=== PATIENT | male | born 1995 | race Caucasian/White ===

== ENCOUNTER → 2016-05-06 | Outpatient (CLI) | payer BC ==
[~2016-05-06] MED LIST: HYDR-4246 PO; MELO15TA12 PO; ONDA4TAB7 PO
[2016-05-06 14:48] LABS: BLOOD, URINE TRACE-LYSED (NEGATIVE); COLOR,URINE YELLOW (YELLOW); LEUKOCYTE ESTERASE ,URINE NEGATIVE (NEGATIVE); NITRITE,URINE NEGATIVE (NEGATIVE); UROBILINOGEN,URINE 0.2 EU/DL (NORMAL)
[2016-05-06 14:50] LABS: BASOPHILS % (AUTO) 0.1 % (0-2); HCT - HEMATOCRIT 44.9 % (41-53); HGB - HEMOGLOBIN 15.4 GM/DL (13.5-17.5); IMMATURE GRANULOCYTE # (AUTO) 0.02 T/MM3 (0.00-0.03); IMMATURE GRANULOCYTE % (AUTO) 0.2 % (0.0-0.5); LYMPHOCYTES # (AUTO) 1.7 T/MM3 (1-4.8); LYMPHOCYTES % (AUTO) 14.5 % (23-45); MEAN CORPUSCULAR HGB 29.8 UUG (26-34); MEAN CORPUSCULAR HGB CONC(MCHC 34.3 GM/DL (31-37); MEAN PLATELET VOLUME 9.3 UM3 (9.4-12.4); MONOCYTES # (AUTO) 1.1 T/MM3 (0-0.8); MONOCYTES % (AUTO) 9.4 % (0-9.0); NEUTROPHILS % (AUTO) 75.8 % (33-66); RED BLOOD COUNT 5.16 M/MM3 (4.50-5.90); WBC - WHITE BLOOD COUNT 11.9 T/MM3 (4.5-11.0)
[2016-05-06 14:54] LABS: ALBUMIN 4.4 G/DL (3.5-5.0); ALBUMIN/GLOBULIN RATIO 1.3 RATIO (1.1-2.2); ALKALINE PHOSPHATASE 83 U/L (38-126); ALT (SGPT) 35 U/L (21-72); ANION GAP 12 MEQ/L (5-15); AST (SGOT) 15 U/L (17-59); BUN/CREATININE RATIO 11 RATIO (6-26); CALCIUM 9.8 MG/DL (8.4-10.2); CHLORIDE 103 MEQ/L (98-107); CO2 - CARBON DIOXIDE 28 MEQ/L (22-30); GLOMERULAR FILTRATION RATE 95; GLUCOSE 106 MG/DL (75-110); POTASSIUM 4.3 MEQ/L (3.6-5); SODIUM 143 MEQ/L (134-144); TOTAL PROTEIN 7.9 G/DL (6.3-8.2)
== END ==
LOC: LAB 14:19
PROVIDERS: ATTEND Family Medicine
DX: R50.9 Fever, unspecified (principal)
CPT/HCPCS: 36415; 80053; 81003; 85025; 86663; 86664; 86665; 86666; 87081; 87430; 87486; 87581; 87633; 87798

== ENCOUNTER 2017-01-11 19:58 | Observation (INO) ==
[2017-01-11] MEDS ORDERED: SALINE FLUSH 10ml SYRINGE IVF PRN (20:46)
[2017-01-11] MEDS ORDERED: ONDANSETRON 4 MG/2 ML INJECTION IVP ONE (20:47)
[2017-01-11] MEDS ORDERED: NS 1,000 ML IV ONE (20:47)
--- NOTE | 2017-01-11 20:49 | Emergency Department Report ---
General Adult HPI - General Chief complaint: Nausea/Vomiting/Diarrhea Stated complaint: Vomitting Time Seen by Provider: 01/11/17 20:08 Source: patient, family Mode of arrival: ambulatory Limitations: no limitations - History of Present Illness HPI narrative: 21-year-old male presents to the emergency department with a chief complaint of intractable nausea, vomiting, and diarrhea. Patient was seen and evaluated in the emergency department earlier today at approximately 1300 p.m. with unremarkable laboratory studies. Patient was given Zofran and 1 L normal saline intravenously in the emergency department and did not have any further emesis while being observed. He was discharged home. Patient states that his emesis returned at home after eating several crackers and that he called his primary care physician who instructed him to go to the emergency department for admission to the hospital. PCP was Dr. Wise. Patient denies any current pain or discomfort. He states that he is having loose stool and continued emesis without blood in either. He denies any trauma, travel, poorly prepared food, or recent antibiotic use. He was at home when his symptoms began. Symptoms have been persistent in nature since Monday of this week. Patient states that he has not been able to hold down any po intake for the past 3 days at home. - Related Data Home Medications Medication Instructions Recorded Confirmed Guaifenesin/Dm [Mucinex Dm] 1 tab PO PRN 01/11/17 01/11/17 Ondansetron [Zofran Odt] 4 mg PO Q4-6HR 01/11/17 01/11/17 Promethazine Tab [Phenergan Tab] 25 mg PO PRN 01/11/17 01/11/17 Allergies Allergy/AdvReac Type Severity Reaction Status Date / Time Penicillins Allergy Unknown HIVES Verified 01/11/17 12:23 Sulfa (Sulfonamide Allergy Unknown Verified 01/11/17 12:23 Antibiotics) Review of Systems Constitutional: Denies: fever, weakness Eyes: Denies: eye pain, vision change ENT: Denies: ear pain, throat pain Cardiovascular: Denies: chest pain, palpitations Respiratory: Denies: cough, dyspnea Gastrointestinal: Reports: nausea, vomiting, diarrhea. Denies: abdominal pain Genitourinary: Denies: urgency, dysuria Musculoskeletal: Denies: back pain, arthralgia Integumentary: Denies: erythema, rash Neurological: Denies: headache, numbness Psychiatric: Denies: anxiety, depression Endocrine: Denies: fatigue, heat or cold intolerance Hematological/Lymphatic: Denies: easy bleeding, easy bruising Allergic/Immunologic: Denies: facial swelling, urticaria PFSH Patient Stated Medical History Asthma Yes: as a child Clinic Medical History Gastroenteritis (Acute Medical) Surgical History: Denied by patient. Family History: Reviewed and Non-contributory. - Social History Smoking status: Never smoker Substance use type: does not use Alcohol intake frequency: does not drink Physical Exam - Limitations Limitations: no limitations - General General appearance: alert, in no apparent distress (Well hydrated and in no acute distress. ) - Normal Exams: Head:: Normocephalic without trauma Eyes:: Pupils are PERRLA w/ EOMI, No scleral icterus, irritation, or foreign bodies noted ENMT:: No facial trauma, nasal exudates, pharyngeal erythema, or exudates are noted Dental: No fractured, loose, or missing teeth noted Neck:: Full range of motion, without adenopathy, JVD, bruits or thyromegaly Chest/Respirations:: Clear all baldwin, with good airflow, and symmetry bilaterally Cardiovascular:: Regular rate and rhythm, without murmur or gallop, Pulses 2+ all extremities, capillary refill, <2 seconds all extremities Abdomen:: Bowel sounds positive, soft, non-tender, non-distended, no hepatosplenomegaly, masses or bruits noted Lymphatic:: No lymphadenopathy, or lymphedema noted Musculoskeletal:: No tenderness, or deformity noted, good range of motion, all extremities Integumentary:: No rashes, hives, or bruising noted, hair and nails, without abnormality Neurological:: Patient is alert, and oriented, cranial nerves, motor/sensory/ cerebellar, exams w/o gross deficits, to observation Psychiatric:: Patient exhibits, appropriate attention, emotion and affect Course Vital Signs Temperature 99.1 F 01/11/17 20:01 Pulse Rate 88 01/11/17 20:01 Respiratory Rate 16 01/11/17 20:01 Blood Pressure 129/68 01/11/17 20:01 Pulse Oximetry 97 01/11/17 20:01 Temperature 99.1 F 01/11/17 20:01 Pulse Rate 96 01/11/17 21:03 Respiratory Rate 16 01/11/17 20:01 Blood Pressure 126/65 01/11/17 21:03 Pulse Oximetry 97 01/11/17 21:03 Medical Decision Making - [facility] Narrative Medical decision making narrative: Labs from earlier visit were reviewed in detail and appear unremarkable. Patient is given 1 L normal saline intravenously. Patient is given Zofran 4 mg IV times one. Patient does not dry heave or produce any emesis during his emergency department stay. Patient is discussed with his primary care physician (Dr. Wise) who states the patient needs to be admitted to the hospital at this time and should not be allowed to return home. Patient is discussed with Dr. Russell from the tele-hospitalist service who agrees to admit patient to his service for further evaluation and treatment due to intractable nausea and vomiting and inability to hold down po intake. Patient and family are in agreement with the current plan of management. Patient is admitted to the hospital in improved condition. Patient was admitted to the service of Dr. Hubbard. - Differential Diagnosis Viral syndrome, Acute gastroenteritis, Dehydration, Metabolic issue Disposition Clinical Impression: INTRACTABLE NAUSEA AND VOMITING, Gastroenteritis Disposition: 02 To [facility] Condition: Improved Time of Disposition: 20:45 (Admit. Dr. Hubbard. ) - Seen By: physician
[2017-01-11] MEDS ORDERED: Oxycodone *IR* 5 MG TABLET PO PRN (21:30)
[2017-01-11] MEDS ORDERED: ONDANSETRON 4 MG/2 ML INJECTION IVP PRN (21:30)
[2017-01-11] MEDS ORDERED: ACETAMINOPHEN 325 MG TABLET PO PRN (21:30)
[2017-01-11] MEDS ORDERED: PROMETHAZINE 25 MG INJECTION IVP PRN (21:30)
--- NOTE | 2017-01-11 21:55 | History & Physical Report ---
History of Present Illness Date: 01/12/17 Chief complaint: n/v/d HPI: Please note that the patient was seen via telemedicine with nursing assistance on 01/11/2017 Mr. Riggs is a 21yo man with only some past ortho surgeries with cough in the last week, scant and nonproductive, then 2 days of nausea, vomiting, diarrhea. Only mild crampy abd pain, no blood in either. No syncope. Some anorexia. Seen in ED with ivf and phenergan with DC only to go to PCP office who sent him to ED and demanded admit. No risky po intake, travel, unusual pets. Review of Systems All systems PM: 10-point ROS was reviewed, no additional remarkable complaints except PFSH Patient Stated Medical History Asthma Yes: as a child Clinic Medical History Gastroenteritis (Acute Medical) Family History Updates: parents alive and well at the bedside - Social History Smoking status: Never smoker Substance use type: does not use Housing: apartment Current occupational status: employed Medications Home Medications Medication Instructions Recorded Confirmed Type Guaifenesin/Dm [Mucinex Dm] 1 tab PO PRN 01/11/17 01/11/17 History Ondansetron [Zofran Odt] 4 mg PO Q4-6HR 01/11/17 01/11/17 History Promethazine Tab [Phenergan Tab] 25 mg PO PRN 01/11/17 01/11/17 History Allergies Allergy/AdvReac Type Severity Reaction Status Date / Time Penicillins Allergy Unknown HIVES Verified 01/11/17 12:23 Sulfa (Sulfonamide Allergy Unknown Verified 01/11/17 12:23 Antibiotics) Exam Vital Signs: Temperature 98.5 F 01/11/17 12:07 Pulse Rate 80 01/11/17 14:49 Respiratory Rate 16 01/11/17 14:49 Blood Pressure 113/57 01/11/17 14:47 Pulse Oximetry 98 01/11/17 14:49 Telemetry Rhythm: Sinus Rhythm Height/Weight/BMI: Height 1.68 m Weight 57.7 kg - Constitutional Present: no acute distress - Routine HEENT Exam Head: Present: normocephalic, atraumatic Eye: Present: EOMI ENT: Present: mucous membranes dry - Routine Neck Exam Present: full ROM - Routine Respiratory Exam Present: CTA bilaterally - Routine Cardiovascular Exam Present: RRR, S1, S2 - Routine Abdominal Exam Present: soft Comments: hyperactive bowel sounds not tympanitic, no sig pain Results - Labs CBC & Chem 7: 01/12/17 04:58 01/12/17 04:58 Assessment and Plan (1) Gastroenteritis Current visit: Yes Status: Acute (2) Gastroenteritis Current visit: Yes Status: Acute Assessment and Plan: obs admit for likely VGE with picornavirus by hx but much norovirus in that town currently. IVF, prns, send stool just for fecal leuks. Home tomorrow likely with education. Clear liquids for now. 01/12/2017-Dr. Garay I seen and examined the patient. I've reviewed the H&P above and agree. Please see my additions below. Chief complaint: Nausea, vomiting and diarrhea History of present illness: The patient is a previously healthy 21-year-old man who developed a cough with cold symptoms approximately 10 days ago and then 3 days ago developed nausea, vomiting and diarrhea. He was given Zofran but continued to have nausea and vomiting. He was seen in the emergency room and given IV fluids and continued to have nausea, vomiting and diarrhea with inability to keep down by mouth fluids. He returned for admission because of the above symptoms. He denies any abdominal pain. He states he does feel kind of achy all over but has no joint swelling or rash. He denies any chest pains or palpitations. He denies any shortness of breath. He does have a dry cough. He denies any hematemesis or coffee-ground emesis. He denies any black tarry stools or red bloody stools. He states he has had some night sweats over the past several days while he is been ill. He thinks he has lost 10-12 pounds in the past week and a half. He has had some heartburn off and on for the past couple of days. Prior to his illness 10 days ago he was well and had no symptoms. No sick contacts. No hospitalizations in the past several months. No antibiotics in the past several months. No history of C. difficile. No family history or contacts with C. difficile. Comprehensive review of systems: Negative other than the above in history of present illness Past medical history: Asthma in childhood, he does not use inhalers or any medications now. Past surgical history: Orthopedic surgeries for injuries Social history: The patient is employed. He lives alone. He is a nonsmoker, nondrinker. Family history: Parents are healthy. Medications: Mucinex DM, Zofran, Phenergan tablets. He occasionally takes ibuprofen or Tylenol. He denies any supplements or vitamins. Physical exam GEN-alert, oriented, no acute distress HEENT-pupils are equal round and reactive, sclerae anicteric, oropharynx is moist NECK-supple, no lymphadenopathy CV-regular rate and rhythm CHEST-to auscultation bilaterally ABD-soft, nontender, nondistended with positive bowel sounds -no Cobian EXT-no edema, no joint swelling or tenderness NEURO-alert and oriented 3, no focal deficits SKIN-warm and dry and without rashes Lab was reviewed. Urinalysis on admission revealed 2+ ketones and +1 bilirubin. CBC is essentially normal. Hemoglobin did drop to 13.8 from 16.3 likely secondary to hydration. Lipase was normal on admission. Liver enzymes were normal on admission. Potassium is borderline low at 3.5. Impression Viral URI Probable viral gastroenteritis Dehydration Intractable nausea and vomiting Diarrhea-improved Weight loss GERD symptoms Plan Continue IV fluids. Give oral Zofran scheduled before meals meals and daily at bedtime. Give IV Reglan when necessary. Add Tessalon Perles if needed for cough. Check chest x-ray regarding cough. Hopefully discharge soon when able to keep down fluids without the need of IV antibiotics. Will give IV Protonix regarding reflux symptoms Discussed plans with the patient and his father. Hospital Course Summary Disclaimer: The visit summary below is not to be considered part of the above Progress Note.
[2017-01-11] MEDS: LR 1,000 ML IV SCH (22:24)
[2017-01-12] MEDS ORDERED: METOCLOPRAMIDE 10mg/2ml INJECTION IVP PRN (08:39)
[2017-01-12] MEDS: LR 1,000 ML IV SCH (08:41)
[2017-01-12] MEDS ORDERED: BENZONATATE 200 MG CAPSULE PO PRN (09:07)
[2017-01-12] MEDS ORDERED: PANTOPRAZOLE 40 MG INJECTION IVP SCH (09:15)
[2017-01-12] MEDS: ONDANSETRON ODT 4 MG TABLET PO SCH ×3 (10:04→17:20)
--- NOTE | 2017-01-12 10:14 | XRay Report ---
INDICATION: cough PROCEDURE: CHEST 2-VIEWS UPRIGHT (PA & LAT) Encounter: Initial COMPARISON: None FINDINGS: The lungs are clear without evidence of focal abnormal airspace opacity. There is no pleural effusion or pneumothorax. Suture anchors in the right glenoid. The heart size, mediastinal contours and pulmonary vascularity are within normal limits. There is no significant skeletal abnormality. IMPRESSION: No acute cardiopulmonary disease. .
[2017-01-12 15:49] VITALS: BP 119/58; PULSE 65; RESP 14; TEMP 97.3; O2SAT 99
--- NOTE | 2017-01-12 16:26 | Discharge Summary ---
Discharge Information Date of admission: 01/11/17 20:55 Anticipated date of discharge: 01/12/17 Attending Physician: Patricia Garay MD Primary care physician: Arun Mejía MD Consults: None - Discharge Diagnosis (1) Gastroenteritis Status: Acute (2) Gastroenteritis Status: Acute Probable viral gastroenteritis, Dehydration, nausea and vomiting, diarrhea, weight loss, GERD symptoms - Laboratory Labs: 01/12/17 04:58 01/12/17 04:58 History of Present Illness HPI: Please note that the patient was seen via telemedicine with nursing assistance on 01/11/2017 Mr. Riggs is a 21yo man with only some past ortho surgeries with cough in the last week, scant and nonproductive, then 2 days of nausea, vomiting, diarrhea. Only mild crampy abd pain, no blood in either. No syncope. Some anorexia. Seen in ED with ivf and phenergan with DC only to go to PCP office who sent him to ED and demanded admit. No risky po intake, travel, unusual pets. Objective Vital signs: Temperature 97.3 F 01/12/17 15:48 Pulse Rate 65 01/12/17 15:48 Respiratory Rate 14 01/12/17 15:48 Blood Pressure 119/58 01/12/17 15:48 Pulse Oximetry 99 01/12/17 15:48 Height/Weight/BMI: Height 1.65 m Weight 59 kg Body Mass Index 21.4 Hospital Course This is a general summary of the patient's hospital course. For more details refer to the complete medical record. Hospital course: 01/12/2017-Dr. Garay I have seen and examined the patient. I've reviewed the H&P above and agree. Please see my additions below. Chief complaint: Nausea, vomiting and diarrhea History of present illness: The patient is a previously healthy 21-year-old man who developed a cough with cold symptoms approximately 10 days ago and then 3 days ago developed nausea, vomiting and diarrhea. He was given Zofran but continued to have nausea and vomiting. He was seen in the emergency room and given IV fluids and continued to have nausea, vomiting and diarrhea with inability to keep down by mouth fluids. He returned for admission because of the above symptoms. He denies any abdominal pain. He states he does feel kind of achy all over but has no joint swelling or rash. He denies any chest pains or palpitations. He denies any shortness of breath. He does have a dry cough. He denies any hematemesis or coffee-ground emesis. He denies any black tarry stools or red bloody stools. He states he has had some night sweats over the past several days while he is been ill. He thinks he has lost 10-12 pounds in the past week and a half. He has had some heartburn off and on for the past couple of days. Prior to his illness 10 days ago he was well and had no symptoms. No sick contacts. No hospitalizations in the past several months. No antibiotics in the past several months. No history of C. difficile. No family history or contacts with C. difficile. Comprehensive review of systems: Negative other than the above in history of present illness Past medical history: Asthma in childhood, he does not use inhalers or any medications now. Past surgical history: Orthopedic surgeries for injuries Social history: The patient is employed. He lives alone. He is a nonsmoker, nondrinker. Family history: Parents are healthy. Medications: Mucinex DM, Zofran, Phenergan tablets. He occasionally takes ibuprofen or Tylenol. He denies any supplements or vitamins. Physical exam GEN-alert, oriented, no acute distress HEENT-pupils are equal round and reactive, sclerae anicteric, oropharynx is moist NECK-supple, no lymphadenopathy CV-regular rate and rhythm CHEST-to auscultation bilaterally ABD-soft, nontender, nondistended with positive bowel sounds -no Cobian EXT-no edema, no joint swelling or tenderness NEURO-alert and oriented 3, no focal deficits SKIN-warm and dry and without rashes Lab was reviewed. Urinalysis on admission revealed 2+ ketones and +1 bilirubin. CBC is essentially normal. Hemoglobin did drop to 13.8 from 16.3 likely secondary to hydration. Lipase was normal on admission. Liver enzymes were normal on admission. Potassium is borderline low at 3.5. Impression Viral URI Probable viral gastroenteritis Dehydration Intractable nausea and vomiting Diarrhea-improved Weight loss GERD symptoms Plan Continue IV fluids. Give oral Zofran scheduled before meals meals and daily at bedtime. Give IV Reglan when necessary. Add Tessalon Perles if needed for cough. Check chest x-ray regarding cough. Hopefully discharge soon when able to keep down fluids without the need of IV antibiotics. Will give IV Protonix regarding reflux symptoms Discussed plans with the patient and his father. 01/12/2017 -Dr. Garay I did reexamine the patient at approximately 4:00 this afternoon accompanied by his father. Phillip states he's feeling better. He was able to drink a supplement drink this afternoon and was able to drink tomato soup and juice at lunch. He states his nausea is much better and his vomiting has resolved. He denies any abdominal pain. He denies any shortness of breath. On exam his lungs are clear. Cardiovascular reveals a regular rate and rhythm. Abdomen is soft and nontender with positive bowel sounds. No distention. He has urinated twice this afternoon. He states he is feeling well enough for dismissal to home. I would recommend he continue on the ODT Zofran before meals meals and daily at bedtime until his nausea has resolved. I will have him discontinue the Phenergan. He can take guaifenesin DM and/or Tessalon Perles for cough if needed. I will have him follow-up with Dr. Mejía in 1 week. He was advised that if his symptoms do not gradually resolve over the next several days or if he develops abdominal pain, intractable vomiting, inability to keep down liquids, vomiting of blood or coffee grounds, or stools that are black or bloody he should return to the emergency room. Discharge Plan - Discharge Disposition Discharge Date: 01/12/17 Disposition: 01 Discharged Home, Self-Care *Condition: Improved Reason For Visit (Visit label in EMR): nausea, vomiting, diarrhea - Discharge Medications *Discharge Medications: New Acetaminophen [Tylenol] 325 - 650 mg PO Q5H PRN tablet PRN Reason: Discomfort Benzonatate [Tessalon Perles] 200 mg PO TID PRN #14 cap PRN Reason: Cough Continue Guaifenesin/Dm [Mucinex Dm] 1 tab PO PRN Changed Ondansetron [Zofran Odt] 4 mg PO ACHS PRN #14 tab.rapdis PRN Reason: Nausea Discontinued Promethazine Tab [Phenergan Tab] 25 mg PO PRN - Discharge Packet/Instructions *Diet: Drink plenty of liquids, add bland foods as tolerated, advance to regular diet as tolerated *Activity: Light activity, return to work and symptoms have resolved *Pain Management/Treatment: Tylenol as needed for pain *Wound Care: Not applicable *Expected Signs/Symptoms: Mild nausea, mild diarrhea, occasional mild abdominal cramping, mild cough *Notify Physician if: Call your doctor or return to the emergency room if you' re not able to keep down fluids, have increased abdominal pain, worsening diarrhea, lightheadedness, fever, shortness of breath, or if symptoms are not gradually improving over the next several days *During Business Hours Contact: Call Dr. Nichols at his office *After Business Hours Contact: Call [phone] Mejía *Pending Lab/Results: No Pending Lab - Referrals/Follow Up *Referrals/Follow Up: Arun Mejía MD [Family Provider] - 1 Week - Patient Handouts
[2017-01-12] MEDS ORDERED: INFLUENZA VAC QIV 2017-18 (Fluarix*)(>=3yo) 0.5ml IM ONE (17:02)
[2017-01-12 17:40] VITALS: BMI 21.6
== END 2017-01-12 17:30 | disposition home or self-care (01) ==
LOC: ED 19:58 → MED 19:58 → SUATTDRO 20:55 → MED 21:25
PROVIDERS: ADMIT Hospitalist; ATTEND Internal Medicine